=== PATIENT | female | born 1960 | race Caucasian/White ===

== ENCOUNTER 2019-04-22 18:43 | Observation (INO) ==
[2019-04-22] MEDS ORDERED: ACETAMINOPHEN 325 MG TABLET PO PRN (21:05)
[2019-04-22] MEDS ORDERED: ONDANSETRON 4 MG/2 ML VIAL IV PRN (21:05)
[2019-04-22] MEDS ORDERED: HYDROmorphone 2 MG/1 ML VIAL IV PRN (21:05)
[2019-04-22 22:09] LABS: Basophils % 0.3 % (0.0-0.8); Eosinophils % 0.1 % (0.00-10.9); Hematocrit 42.5 VOL% (35.7-47.0); Hemoglobin 14.4 GM/DL (12.0-16.0); Immature Granulocytes % 0.6 %; Immature Granulocytes Absolute 0.08 #; Lymphocytes % 6.6 % (21.3-54.2); Mean Corpuscular HGB Conc 33.9 GM/DL (32-36); Mean Corpuscular Volume 97.7 FL (87-102); Monocytes % 9.7 % (1.7-12.7); Neutrophils % 82.7 % (38.7-73.9); Platelet Count 257 T/CUMM (130-400); Red Blood Count 4.35 MC/CUMM (3.8-5.5); Red Cell Distribution Width 11.9 % (9.3-17.3); White Blood Count 14.5 T/CUMM (4-12)
[2019-04-23] MEDS: DEXTROSE 5% LACTATED RINGERS 1,000 ML IV SCH ×2 (01:03→09:02)
[2019-04-23] MEDS: CLINDAMYCIN INJ 900 MG in PREMIX 1 EACH IV SCH ×2 (01:04→08:32)
[2019-04-23] MEDS ORDERED: CLINDAMYCIN INJ 900 MG in PREMIX 1 EACH IV ONE (07:43)
[2019-04-23] MEDS ORDERED: PANTOPRAZOLE 40 MG TABLET PO SCH (09:00)
[2019-04-23] MEDS ORDERED: HYDROmorphone 2 MG/1 ML VIAL IV PRN (10:26)
[2019-04-23] MEDS ORDERED: ONDANSETRON 4 MG/2 ML VIAL IV PRN (10:26)
[2019-04-23 16:28] VITALS: BP 121/80
[2019-04-23] MEDS ORDERED: ALPRAZolam 0.5 MG TABLET PO PRN (21:00)
[2019-04-24] MEDS ORDERED: FLUTICASONE 50 MCG NASAL SPRAY 16 GM BOTTLE BOTH NARES SCH (09:00)
== END 2019-04-23 17:01 | disposition home or self-care (01) ==
LOC: N.EDINP 18:43 → N.ED 18:43 → N.3E 21:22
PROVIDERS: ADMIT Student in an Organized Health Care Education/Training Program; ATTEND Student in an Organized Health Care Education/Training Program
PROC: LAPCHOL (2019-04-23 08:33)

== ENCOUNTER 2019-05-17 02:48 | Inpatient (IN) ==
[2019-05-17] MEDS ORDERED: SODIUM CHLORIDE 0.9% 1,000 ML IV STA (03:21)
[2019-05-17] MEDS ORDERED: ONDANSETRON 4 MG/2 ML VIAL IV STA (03:21)
[2019-05-17] MEDS ORDERED: MORPHINE 4 MG/1 ML VIAL IV STA ×2 (03:21→05:31)
[2019-05-17 03:39] LABS: Basophils % 0.5 % (0.0-0.8); Eosinophils # 0.2 10*3/uL (0.0-0.87); Eosinophils % 2.6 % (0.00-10.9); Hematocrit 45.5 VOL% (35.7-47.0); Hemoglobin 15.1 GM/DL (12.0-16.0); Immature Granulocytes % 0.3 %; Immature Granulocytes Absolute 0.03 #; Lymphocytes # 1.1 10*3/uL (1.4-4.0); Lymphocytes % 12.7 % (21.3-54.2); Mean Corpuscular HGB Conc 33.2 GM/DL (32-36); Mean Corpuscular Volume 98.9 FL (87-102); Mean Platelet Volume 10.2 FL (9.6-12.0); Monocytes % 9.5 % (1.7-12.7); Neutrophils % 74.4 % (38.7-73.9); Platelet Count 256 T/CUMM (130-400); Red Cell Distribution Width 11.8 % (9.3-17.3); White Blood Count 8.7 T/CUMM (4-12)
[2019-05-17 04:58] LABS: Albumin 3.4 G/DL (3.4-5.0); Bilirubin,Total 1.5 MG/DL (0.2-1.0); Calcium 9.3 MG/DL (8.5-10.1); Osmolality,Calculated 283.1 MOS/KG (273-304); Total Protein 7.3 G/DL (6.4-8.3)
[2019-05-17] MEDS ORDERED: diphenhydrAMINE 50 MG/1 ML VIAL ONE (05:57)
[2019-05-17] MEDS ORDERED: methylPREDNISolone SOD SUC 125 MG/2 ML VIAL ONE (05:58)
[2019-05-17] MEDS ORDERED: diphenhydrAMINE 50 MG/1 ML VIAL IV STA (06:00)
[2019-05-17] MEDS ORDERED: methylPREDNISolone SOD SUC 125 MG/2 ML VIAL IV STA (06:00)
[2019-05-17] MEDS ORDERED: CLINDAMYCIN INJ 600 MG in PREMIX 1 EACH IV STA (06:19)
[2019-05-17] MEDS: DEXTROSE 5% NACL 0.45% 1,000 ML IV SCH ×2 (07:05→15:59)
[2019-05-17 09:44] LABS: Basophils % 0.3 % (0.0-0.8); Hematocrit 45.6 VOL% (35.7-47.0); Hemoglobin 14.9 GM/DL (12.0-16.0); Immature Granulocytes % 0.3 %; Immature Granulocytes Absolute 0.03 #; Lymphocytes # 0.2 10*3/uL (1.4-4.0); Lymphocytes % 1.9 % (21.3-54.2); Mean Corpuscular HGB Conc 32.7 GM/DL (32-36); Mean Corpuscular Volume 99.8 FL (87-102); Mean Platelet Volume 10.4 FL (9.6-12.0); Monocytes % 1.2 % (1.7-12.7); Neutrophils % 96.3 % (38.7-73.9); Platelet Count 259 T/CUMM (130-400); Red Blood Count 4.57 MC/CUMM (3.8-5.5); Red Cell Distribution Width 11.9 % (9.3-17.3)
[2019-05-17 10:03] LABS: Hypochromasia Slight; Lymphocytes 1 % (20-55); Platelet Estimate Adequate; Segmented Neutrophils 97 % (50-85); Total Cells Counted 100
[2019-05-17 10:10] LABS: Albumin 3.2 G/DL (3.4-5.0); Bilirubin,Total 3.1 MG/DL (0.2-1.0); Calcium 8.6 MG/DL (8.5-10.1); Osmolality,Calculated 280.5 MOS/KG (273-304); Total Protein 6.9 G/DL (6.4-8.3)
[2019-05-17] MEDS: FAMOTIDINE 20 MG/2 ML VIAL IV SCH ×2 (10:21→20:13)
[2019-05-17] MEDS: MORPHINE 4 MG/1 ML VIAL IV PRN ×3 (10:58→23:26)
[2019-05-17] MEDS: CLINDAMYCIN INJ 600 MG in PREMIX 1 EACH IV SCH ×3 (13:24→23:25)
[2019-05-17] MEDS: ONDANSETRON 4 MG/2 ML VIAL IV PRN (16:19)
[2019-05-17] MEDS ORDERED: ALPRAZolam 0.5 MG TABLET PO PRN (21:00)
[2019-05-18] MEDS: CLINDAMYCIN INJ 600 MG in PREMIX 1 EACH IV SCH ×4 (00:31→17:30)
[2019-05-18] MEDS: DEXTROSE 5% NACL 0.45% 1,000 ML IV SCH ×4 (00:32→22:24)
[2019-05-18 05:17] LABS: Basophils % 0.2 % (0.0-0.8); Hematocrit 45.6 VOL% (35.7-47.0); Hemoglobin 15.2 GM/DL (12.0-16.0); Immature Granulocytes % 0.5 %; Immature Granulocytes Absolute 0.09 #; Lymphocytes # 0.4 10*3/uL (1.4-4.0); Lymphocytes % 2.3 % (21.3-54.2); Mean Corpuscular HGB Conc 33.3 GM/DL (32-36); Mean Corpuscular Volume 98.7 FL (87-102); Mean Platelet Volume 10.8 FL (9.6-12.0); Monocytes % 7.6 % (1.7-12.7); Neutrophils % 89.4 % (38.7-73.9); Platelet Count 252 T/CUMM (130-400); Red Blood Count 4.62 MC/CUMM (3.8-5.5); White Blood Count 16.8 T/CUMM (4-12)
[2019-05-18 05:28] LABS: INR 1.1; PT Patient Result 11.4 SECS (9.6-12.2)
[2019-05-18 05:44] LABS: Band Neutrophils 4 % (0-10); Eosinophils 1 % (0-10); Lymphocytes 2 % (20-55); Segmented Neutrophils 90 % (50-85); Total Cells Counted 100
[2019-05-18 05:45] LABS: Hypochromasia 1+; Platelet Estimate Adequate
[2019-05-18] MEDS: ONDANSETRON 4 MG/2 ML VIAL IV PRN (06:07)
[2019-05-18] MEDS: FAMOTIDINE 20 MG/2 ML VIAL IV SCH ×2 (08:27→20:33)
[2019-05-18] MEDS: FLUTICASONE 50 MCG NASAL SPRAY 16 GM BOTTLE BOTH NARES SCH (08:29)
[2019-05-18] MEDS: LACTATED RINGERS 1,000 ML IV SCH (08:32)
[2019-05-18] MEDS ORDERED: DEXAMETHASONE 4 MG/1 ML VIAL ONE (09:00)
[2019-05-18] MEDS ORDERED: PROPOFOL 200 MG/20 ML VIAL IV ONE (09:00)
[2019-05-18] MEDS ORDERED: SUCCINYLCHOLINE 200 MG/10 ML VIAL ONE (09:00)
[2019-05-18] MEDS ORDERED: LIDOCAINE 2% 5 ML VIAL ONE (09:00)
[2019-05-18] MEDS ORDERED: fentaNYL 100 MCG/2 ML VIAL ONE ×2 (09:00→13:42)
[2019-05-18] MEDS ORDERED: ROCURONIUM 100 MG/10 ML VIAL IV ONE (09:00)
[2019-05-18] MEDS ORDERED: ONDANSETRON 4 MG/2 ML VIAL ONE (09:00)
[2019-05-18] MEDS ORDERED: PHENYLEPHRINE 1 MG/10 ML SYRINGE IV ONE (09:00)
[2019-05-18 09:49] LABS: Albumin 3.1 G/DL (3.4-5.0); Bilirubin,Direct 0.77 MG/DL (0.0-0.20); Bilirubin,Indirect 0.6 MG/DL (0.0-1.0); Bilirubin,Total 1.4 MG/DL (0.2-1.0); Total Protein 6.1 G/DL (6.4-8.3)
[2019-05-18] MEDS: ACETAMINOPHEN 325 MG TABLET PO PRN ×2 (11:57→20:39)
[2019-05-18] MEDS: metroNIDAZOLE INJ 500 MG in PREMIX 1 EACH IV SCH ×2 (21:39→22:50)
[2019-05-18] MEDS: diphenhydrAMINE CAP 25 MG CAPSULE PO PRN (22:50)
[2019-05-19] MEDS: CLINDAMYCIN INJ 600 MG in PREMIX 1 EACH IV SCH ×4 (00:14→21:42)
[2019-05-19] MEDS: ONDANSETRON 4 MG/2 ML VIAL IV PRN ×2 (04:17→20:05)
[2019-05-19] MEDS: metroNIDAZOLE INJ 500 MG in PREMIX 1 EACH IV SCH ×3 (04:19→20:42)
[2019-05-19 06:07] LABS: Basophils % 0.1 % (0.0-0.8); Hematocrit 39.5 VOL% (35.7-47.0); Hemoglobin 13.6 GM/DL (12.0-16.0); Immature Granulocytes Absolute 0.21 #; Lymphocytes # 0.4 10*3/uL (1.4-4.0); Lymphocytes % 2.1 % (21.3-54.2); Mean Corpuscular HGB Conc 34.4 GM/DL (32-36); Mean Corpuscular Volume 96.3 FL (87-102); Mean Platelet Volume 11.4 FL (9.6-12.0); Monocytes % 5.9 % (1.7-12.7); Neutrophils % 90.9 % (38.7-73.9); Platelet Count 146 T/CUMM (130-400); Red Cell Distribution Width 12.1 % (9.3-17.3); White Blood Count 20.2 T/CUMM (4-12)
[2019-05-19] MEDS: DEXTROSE 5% NACL 0.45% 1,000 ML IV SCH (06:18)
[2019-05-19 06:30] LABS: Lymphocytes 3 % (20-55); Platelet Estimate Decreased; Polychromasia Slight; Segmented Neutrophils 93 % (50-85); Total Cells Counted 100
[2019-05-19 06:33] LABS: Albumin 2.5 G/DL (3.4-5.0); Bilirubin,Total 1.5 MG/DL (0.2-1.0); Calcium 8.1 MG/DL (8.5-10.1); Osmolality,Calculated 277.5 MOS/KG (273-304); Total Protein 5.9 G/DL (6.4-8.3)
[2019-05-19] MEDS: FAMOTIDINE 20 MG/2 ML VIAL IV SCH ×2 (08:46→20:11)
[2019-05-19] MEDS: FLUTICASONE 50 MCG NASAL SPRAY 16 GM BOTTLE BOTH NARES SCH (08:47)
[2019-05-19] MEDS: LACTATED RINGERS 1,000 ML IV SCH (08:47)
[2019-05-19] MEDS ORDERED: fentaNYL 100 MCG/2 ML VIAL IV ONE (09:00)
[2019-05-19] MEDS ORDERED: MIDAZOLAM 2 MG/2 ML VIAL IV ONE (09:00)
[2019-05-19] MEDS ORDERED: BISACODYL 10 MG SUPP RECTAL ONE (10:22)
[2019-05-19] MEDS ORDERED: LIDOCAINE 2% 5 ML VIAL ONE (18:26)
[2019-05-19] MEDS ORDERED: PROPOFOL 200 MG/20 ML VIAL IV ONE (18:26)
[2019-05-19] MEDS ORDERED: diphenhydrAMINE 50 MG/1 ML VIAL ONE (18:27)
[2019-05-19] MEDS ORDERED: fentaNYL 100 MCG/2 ML VIAL ONE (18:27)
[2019-05-19] MEDS ORDERED: MIDAZOLAM 2 MG/2 ML VIAL ONE (18:27)
[2019-05-19] MEDS ORDERED: SUCCINYLCHOLINE 200 MG/10 ML VIAL ONE (18:27)
[2019-05-19] MEDS ORDERED: ONDANSETRON 4 MG/2 ML VIAL ONE (18:27)
[2019-05-19] MEDS ORDERED: LACTATED RINGERS 1,000 ML IV ONE (18:27)
[2019-05-19] MEDS ORDERED: PHENYLEPHRINE 1 MG/10 ML SYRINGE IV ONE (18:27)
[2019-05-19] MEDS ORDERED: ROCURONIUM 100 MG/10 ML VIAL IV ONE (18:27)
[2019-05-19 18:39] LABS: Basophils % 0.2 % (0.0-0.8); Hematocrit 41.5 VOL% (35.7-47.0); Hemoglobin 14.1 GM/DL (12.0-16.0); Immature Granulocytes % 1.1 %; Immature Granulocytes Absolute 0.18 #; Lymphocytes # 0.7 10*3/uL (1.4-4.0); Mean Corpuscular Volume 98.1 FL (87-102); Mean Platelet Volume 10.1 FL (9.6-12.0); Monocytes % 5.5 % (1.7-12.7); Neutrophils % 89.2 % (38.7-73.9); Platelet Count 165 T/CUMM (130-400); Red Blood Count 4.23 MC/CUMM (3.8-5.5); Red Cell Distribution Width 12.1 % (9.3-17.3); White Blood Count 16.7 T/CUMM (4-12)
[2019-05-19 19:02] LABS: Albumin 2.4 G/DL (3.4-5.0); Bilirubin,Total 2.2 MG/DL (0.2-1.0); Calcium 7.9 MG/DL (8.5-10.1); Osmolality,Calculated 275.5 MOS/KG (273-304)
[2019-05-19 19:08] LABS: Lymphocytes 3 % (20-55); Platelet Estimate Normal; Segmented Neutrophils 95 % (50-85); Total Cells Counted 100
[2019-05-19] MEDS ORDERED: PROMETHAZINE INJ 25 MG in SODIUM CHLORIDE 0.9% 50 ML IV PRN (19:12)
[2019-05-19] MEDS: MORPHINE 4 MG/1 ML VIAL IV PRN (20:08)
[2019-05-19] MEDS: POTASSIUM CHLORIDE INJ 30 MEQ in DEXTROSE 5% LACTATED RINGERS 1,000 ML IV SCH (20:15)
[2019-05-19] MEDS: LACTATED RINGERS 500 ML IV SCH (21:42)
[2019-05-20] MEDS: CLINDAMYCIN INJ 600 MG in PREMIX 1 EACH IV SCH ×4 (03:58→23:49)
[2019-05-20 04:15] LABS: Basophils % 0.2 % (0.0-0.8); Hematocrit 36.6 VOL% (35.7-47.0); Hemoglobin 12.3 GM/DL (12.0-16.0); Immature Granulocytes % 0.8 %; Immature Granulocytes Absolute 0.13 #; Lymphocytes # 0.4 10*3/uL (1.4-4.0); Lymphocytes % 2.3 % (21.3-54.2); Mean Corpuscular HGB Conc 33.6 GM/DL (32-36); Mean Corpuscular Volume 98.7 FL (87-102); Mean Platelet Volume 10.8 FL (9.6-12.0); Monocytes % 6.5 % (1.7-12.7); Neutrophils % 90.2 % (38.7-73.9); Platelet Count 155 T/CUMM (130-400); Red Blood Count 3.71 MC/CUMM (3.8-5.5); Red Cell Distribution Width 12.2 % (9.3-17.3); White Blood Count 17.2 T/CUMM (4-12)
[2019-05-20 04:22] LABS: Albumin 2.2 G/DL (3.4-5.0); Calcium 7.9 MG/DL (8.5-10.1); Osmolality,Calculated 278.4 MOS/KG (273-304); Total Protein 5.4 G/DL (6.4-8.3)
[2019-05-20 04:37] LABS: Band Neutrophils 6 % (0-10); Lymphocytes 5 % (20-55); Metamyelocytes 1 %; Segmented Neutrophils 84 % (50-85); Total Cells Counted 100
[2019-05-20 04:38] LABS: Hypochromasia 1+; Platelet Estimate Normal
[2019-05-20] MEDS: MORPHINE 4 MG/1 ML VIAL IV PRN (04:45)
[2019-05-20] MEDS: POTASSIUM CHLORIDE INJ 30 MEQ in DEXTROSE 5% LACTATED RINGERS 1,000 ML IV SCH ×3 (05:14→16:25)
[2019-05-20] MEDS: ONDANSETRON 4 MG/2 ML VIAL IV PRN ×3 (05:20→19:41)
[2019-05-20] MEDS: metroNIDAZOLE INJ 500 MG in PREMIX 1 EACH IV SCH ×3 (05:23→22:37)
[2019-05-20] MEDS ORDERED: INDOMETHACIN SUPP 50 MG SUPP RECTAL ONE (06:59)
[2019-05-20] MEDS: FAMOTIDINE 20 MG/2 ML VIAL IV SCH ×2 (10:42→21:08)
[2019-05-20] MEDS: FLUTICASONE 50 MCG NASAL SPRAY 16 GM BOTTLE BOTH NARES SCH (10:42)
[2019-05-20] MEDS: LACTATED RINGERS 500 ML IV SCH (10:42)
[2019-05-20] MEDS ORDERED: MAGNESIUM SULF RIDER 4 GM in PREMIX 1 EACH IV PRN (11:54)
[2019-05-20] MEDS ORDERED: MAGNESIUM SULF RIDER 2 GM in PREMIX 1 EACH IV PRN (11:54)
[2019-05-20] MEDS: LACTATED RINGERS 1,000 ML IV SCH (16:25)
[2019-05-20] MEDS: ALPRAZolam 0.5 MG TABLET PO PRN (21:07)
[2019-05-20] MEDS: diphenhydrAMINE CAP 25 MG CAPSULE PO PRN (22:33)
[2019-05-21] MEDS: POTASSIUM CHLORIDE INJ 30 MEQ in DEXTROSE 5% LACTATED RINGERS 1,000 ML IV SCH ×3 (02:29→17:38)
[2019-05-21] MEDS: MORPHINE 4 MG/1 ML VIAL IV PRN (02:40)
[2019-05-21 04:17] LABS: Basophils % 0.2 % (0.0-0.8); Eosinophils % 0.2 % (0.00-10.9); Hematocrit 35.7 VOL% (35.7-47.0); Hemoglobin 12.1 GM/DL (12.0-16.0); Immature Granulocytes % 0.6 %; Immature Granulocytes Absolute 0.09 #; Lymphocytes # 0.6 10*3/uL (1.4-4.0); Lymphocytes % 4.1 % (21.3-54.2); Mean Corpuscular HGB Conc 33.9 GM/DL (32-36); Mean Corpuscular Volume 96.2 FL (87-102); Mean Platelet Volume 10.4 FL (9.6-12.0); Monocytes % 7.5 % (1.7-12.7); Neutrophils % 87.4 % (38.7-73.9); Platelet Count 144 T/CUMM (130-400); Red Blood Count 3.71 MC/CUMM (3.8-5.5); Red Cell Distribution Width 12.1 % (9.3-17.3)
[2019-05-21 04:59] LABS: Bilirubin,Total 1.9 MG/DL (0.2-1.0); Calcium 7.8 MG/DL (8.5-10.1); Osmolality,Calculated 274.7 MOS/KG (273-304); Total Protein 5.4 G/DL (6.4-8.3)
[2019-05-21] MEDS: CLINDAMYCIN INJ 600 MG in PREMIX 1 EACH IV SCH ×4 (05:10→23:14)
[2019-05-21 05:35] LABS: Band Neutrophils 2 % (0-10); Lymphocytes 2 % (20-55); Segmented Neutrophils 91 % (50-85)
[2019-05-21 05:36] LABS: Platelet Estimate Normal; Total Cells Counted 100
[2019-05-21] MEDS: metroNIDAZOLE INJ 500 MG in PREMIX 1 EACH IV SCH ×2 (06:47→20:41)
[2019-05-21] MEDS: ONDANSETRON 4 MG/2 ML VIAL IV PRN (06:51)
[2019-05-21] MEDS: FLUTICASONE 50 MCG NASAL SPRAY 16 GM BOTTLE BOTH NARES SCH (09:23)
[2019-05-21] MEDS: POTASSIUM CHLORIDE RIDER 10 MEQ in PREMIX 1 EACH IV SCH ×4 (09:23→17:45)
[2019-05-21] MEDS: PANTOPRAZOLE 40 MG VIAL IV SCH (09:23)
[2019-05-21] MEDS ORDERED: BISACODYL 10 MG SUPP RECTAL STA (14:37)
[2019-05-21] MEDS: LACTATED RINGERS 500 ML IV SCH (17:38)
[2019-05-21] MEDS: LACTATED RINGERS 1,000 ML IV SCH (17:39)
[2019-05-21] MEDS ORDERED: POTASSIUM CHLORIDE RIDER 10 MEQ in PREMIX 1 EACH IV SCH (18:00)
[2019-05-21] MEDS: ACETAMINOPHEN 325 MG TABLET PO PRN ×2 (18:25→20:56)
[2019-05-21] MEDS: ALPRAZolam 0.5 MG TABLET PO PRN (20:48)
[2019-05-22 04:39] LABS: Basophils % 0.1 % (0.0-0.8); Eosinophils # 0.2 10*3/uL (0.0-0.87); Eosinophils % 1.3 % (0.00-10.9); Hematocrit 34.7 VOL% (35.7-47.0); Hemoglobin 11.9 GM/DL (12.0-16.0); Immature Granulocytes % 0.6 %; Immature Granulocytes Absolute 0.09 #; Lymphocytes # 0.6 10*3/uL (1.4-4.0); Lymphocytes % 4.1 % (21.3-54.2); Mean Corpuscular HGB Conc 34.3 GM/DL (32-36); Mean Corpuscular Volume 95.6 FL (87-102); Monocytes % 9.5 % (1.7-12.7); Neutrophils % 84.4 % (38.7-73.9); Platelet Count 163 T/CUMM (130-400); Red Blood Count 3.63 MC/CUMM (3.8-5.5); Red Cell Distribution Width 12.3 % (9.3-17.3)
[2019-05-22 05:11] LABS: Albumin 2.1 G/DL (3.4-5.0); Bilirubin,Total 1.2 MG/DL (0.2-1.0); Calcium 7.8 MG/DL (8.5-10.1); Osmolality,Calculated 271.8 MOS/KG (273-304); Total Protein 5.6 G/DL (6.4-8.3)
[2019-05-22] MEDS: CLINDAMYCIN INJ 600 MG in PREMIX 1 EACH IV SCH ×4 (05:13→23:55)
[2019-05-22 05:40] LABS: Eosinophils 2 % (0-10); Lymphocytes 2 % (20-55); Segmented Neutrophils 91 % (50-85); Total Cells Counted 100
[2019-05-22 05:42] LABS: Tear Drop Cells Few
[2019-05-22 05:43] LABS: Platelet Estimate Normal
[2019-05-22] MEDS: metroNIDAZOLE INJ 500 MG in PREMIX 1 EACH IV SCH ×3 (05:59→21:59)
[2019-05-22] MEDS ORDERED: POTASSIUM CHLORIDE RIDER 10 MEQ in PREMIX 1 EACH IV PRN (08:01)
[2019-05-22] MEDS: POTASSIUM CHLORIDE INJ 30 MEQ in DEXTROSE 5% LACTATED RINGERS 1,000 ML IV SCH ×2 (08:04→17:30)
[2019-05-22] MEDS: LACTATED RINGERS 1,000 ML IV SCH (08:04)
[2019-05-22] MEDS: PANTOPRAZOLE 40 MG VIAL IV SCH (09:08)
[2019-05-22] MEDS: FLUTICASONE 50 MCG NASAL SPRAY 16 GM BOTTLE BOTH NARES SCH (09:12)
[2019-05-22] MEDS: POTASSIUM CHLORIDE 20 MEQ TABLET PO PRN ×4 (09:14→16:06)
[2019-05-22] MEDS: LACTATED RINGERS 500 ML IV SCH (10:49)
[2019-05-22] MEDS: ACETAMINOPHEN 325 MG TABLET PO PRN ×2 (16:23→22:06)
[2019-05-22] MEDS: ALPRAZolam 0.5 MG TABLET PO PRN (22:07)
[2019-05-23] MEDS: POTASSIUM CHLORIDE INJ 30 MEQ in DEXTROSE 5% LACTATED RINGERS 1,000 ML IV SCH ×4 (03:05→16:54)
[2019-05-23] MEDS: CLINDAMYCIN INJ 600 MG in PREMIX 1 EACH IV SCH (05:00)
[2019-05-23] MEDS: metroNIDAZOLE INJ 500 MG in PREMIX 1 EACH IV SCH (05:00)
[2019-05-23 05:01] LABS: Basophils # 0.1 10*3/uL (0.0-0.2); Basophils % 0.4 % (0.0-0.8); Eosinophils # 0.4 10*3/uL (0.0-0.87); Hematocrit 35.5 VOL% (35.7-47.0); Hemoglobin 12.1 GM/DL (12.0-16.0); Immature Granulocytes % 0.9 %; Lymphocytes # 0.6 10*3/uL (1.4-4.0); Lymphocytes % 5.4 % (21.3-54.2); Mean Corpuscular HGB Conc 34.1 GM/DL (32-36); Mean Corpuscular Volume 95.7 FL (87-102); Mean Platelet Volume 10.3 FL (9.6-12.0); Monocytes % 10.6 % (1.7-12.7); Neutrophils % 79.7 % (38.7-73.9); Platelet Count 148 T/CUMM (130-400); Red Blood Count 3.71 MC/CUMM (3.8-5.5); Red Cell Distribution Width 12.2 % (9.3-17.3); White Blood Count 11.8 T/CUMM (4-12)
[2019-05-23 05:28] LABS: Calcium 8.1 MG/DL (8.5-10.1); Osmolality,Calculated 276.5 MOS/KG (273-304)
[2019-05-23] MEDS: FLUTICASONE 50 MCG NASAL SPRAY 16 GM BOTTLE BOTH NARES SCH (10:19)
[2019-05-23] MEDS: PANTOPRAZOLE 40 MG VIAL IV SCH (10:20)
[2019-05-23 10:28] LABS: Albumin 2.1 G/DL (3.4-5.0); Bilirubin,Direct 0.37 MG/DL (0.0-0.20); Bilirubin,Indirect 0.4 MG/DL (0.0-1.0); Bilirubin,Total 0.8 MG/DL (0.2-1.0); Total Protein 5.6 G/DL (6.4-8.3)
[2019-05-23] MEDS: CLINDAMYCIN 300 MG CAPSULE PO SCH ×2 (14:30→21:43)
[2019-05-24] MEDS: POTASSIUM CHLORIDE INJ 30 MEQ in DEXTROSE 5% LACTATED RINGERS 1,000 ML IV SCH (01:40)
[2019-05-24] MEDS: CLINDAMYCIN 300 MG CAPSULE PO SCH ×3 (07:20→22:00)
[2019-05-24 07:59] LABS: Basophils % 0.3 % (0.0-0.8); Eosinophils # 0.3 10*3/uL (0.0-0.87); Eosinophils % 3.2 % (0.00-10.9); Hematocrit 36.2 VOL% (35.7-47.0); Hemoglobin 12.3 GM/DL (12.0-16.0); Immature Granulocytes % 1.1 %; Immature Granulocytes Absolute 0.11 #; Lymphocytes # 0.8 10*3/uL (1.4-4.0); Lymphocytes % 7.7 % (21.3-54.2); Mean Corpuscular Volume 97.6 FL (87-102); Mean Platelet Volume 10.5 FL (9.6-12.0); Monocytes % 10.2 % (1.7-12.7); Neutrophils % 77.5 % (38.7-73.9); Platelet Count 180 T/CUMM (130-400); Red Blood Count 3.71 MC/CUMM (3.8-5.5); Red Cell Distribution Width 12.8 % (9.3-17.3); White Blood Count 10.3 T/CUMM (4-12)
[2019-05-24 08:17] LABS: Albumin 2.4 G/DL (3.4-5.0); Bilirubin,Total 0.7 MG/DL (0.2-1.0); Calcium 8.6 MG/DL (8.5-10.1); Osmolality,Calculated 271.8 MOS/KG (273-304); Total Protein 6.2 G/DL (6.4-8.3)
[2019-05-24] MEDS: POTASSIUM CHLORIDE 20 MEQ TABLET PO PRN ×3 (08:31→15:30)
[2019-05-24] MEDS: FLUTICASONE 50 MCG NASAL SPRAY 16 GM BOTTLE BOTH NARES SCH (08:36)
[2019-05-24] MEDS: PANTOPRAZOLE 40 MG VIAL IV SCH (08:40)
[2019-05-24] MEDS ORDERED: POTASSIUM CHLORIDE 20 MEQ TABLET PO ONE (14:52)
[2019-05-25 04:56] LABS: Basophils # 0.1 10*3/uL (0.0-0.2); Basophils % 0.6 % (0.0-0.8); Eosinophils # 0.3 10*3/uL (0.0-0.87); Eosinophils % 3.1 % (0.00-10.9); Hematocrit 39.1 VOL% (35.7-47.0); Hemoglobin 13.2 GM/DL (12.0-16.0); Immature Granulocytes % 1.1 %; Immature Granulocytes Absolute 0.11 #; Lymphocytes # 1.1 10*3/uL (1.4-4.0); Mean Corpuscular HGB Conc 33.8 GM/DL (32-36); Mean Corpuscular Volume 97.3 FL (87-102); Mean Platelet Volume 10.3 FL (9.6-12.0); Monocytes % 9.5 % (1.7-12.7); Neutrophils % 74.7 % (38.7-73.9); Platelet Count 226 T/CUMM (130-400); Red Blood Count 4.02 MC/CUMM (3.8-5.5); Red Cell Distribution Width 12.7 % (9.3-17.3); White Blood Count 9.9 T/CUMM (4-12)
[2019-05-25 05:14] LABS: Albumin 2.4 G/DL (3.4-5.0); Bilirubin,Total 0.7 MG/DL (0.2-1.0); Calcium 8.6 MG/DL (8.5-10.1); Osmolality,Calculated 275.5 MOS/KG (273-304); Total Protein 6.4 G/DL (6.4-8.3)
[2019-05-25 07:37] VITALS: BP 103/80
[2019-05-25] MEDS: CLINDAMYCIN 300 MG CAPSULE PO SCH (08:27)
[2019-05-25] MEDS: FLUTICASONE 50 MCG NASAL SPRAY 16 GM BOTTLE BOTH NARES SCH (08:27)
[2019-05-25] MEDS: PANTOPRAZOLE 40 MG VIAL IV SCH (10:16)
== END 2019-05-25 11:00 | disposition home or self-care (01) | DRG 438 ==
LOC: N.ED 02:48 → N.EDINP 06:02 → N.3E 08:40
PROVIDERS: ADMIT Student in an Organized Health Care Education/Training Program; ATTEND Student in an Organized Health Care Education/Training Program